=== PATIENT | female | born 1940 | race Two or more races ===

== ENCOUNTER 2019-08-01 05:55 | Day surgery (SDC) | payer OTHER ==
[~2019-08-01 05:55] MED LIST: ADVAIR HFA 230/12 GM IH; GLIPIZIDE XL10 MG PO; HUMULIN N100 UNIT/2; LATANOPROST 0.7.5 ML OP; SINGULAIR10 MG PO; ZESTORETIC 20-1 EAC1 PO; ZOCOR20 MG PO; ZYRTEC10 M3 PO
[2019-08-01] MEDS ORDERED: ULTRACET PO (12:07)
[2019-08-01] MEDS ORDERED: LEVAQUIN500 MG PO (12:08)
== END 2019-08-01 14:32 | disposition home or self-care (01) ==
LOC: CIR.AMB 05:55
DX: T85.193A Other mechanical complication of implanted electronic neurostimulator, generator, initial encounter (principal)
CPT/HCPCS: 64590; 64581; C1767; C1778

== ENCOUNTER 2024-08-15 05:06 | Day surgery (SDC) | payer OTHER ==
[~2024-08-15 05:06] MED LIST changes: +AMLODIPINE-BEN1 EAC4 PO; +ATORVASTATIN CA40 MG PO; +LANTUS SOL100 UNIT/1; +LEVAQUIN500 MG PO; +ULTRACET PO
[2024-08-15] MEDS ORDERED: CHLORHEXIDINE GLUCONATE 120 ML BOTTLE TOP ONE (07:17)
[2024-08-15] MEDS ORDERED: CIPROFLOXACIN IN 5 % DEXTROSE 400 MG/200 ML PIGGYBAG IV ONE (07:18)
[2024-08-15] MEDS ORDERED: LIDOCAINE HCL 1%/EPINEPHRINE 20ML VIAL IJ ONE (07:19)
[2024-08-15] MEDS ORDERED: LIDOCAINE HCL 1% 20 ML VIAL IJ ONE (07:25)
[2024-08-15] MEDS ORDERED: GENTAMICIN SULFATE 40 MG/ML VIAL ONE (07:25)
[2024-08-15] MEDS ORDERED: LEVOFLOXACIN250 MG PO (08:29)
== END 2024-08-15 09:25 | disposition home or self-care (01) ==
LOC: CIR.AMB 05:06
PROVIDERS: ATTEND Obstetrics & Gynecology Gynecology
DX: N32.81 Overactive bladder (principal); N39.41 Urge incontinence; T85.193A Other mechanical complication of implanted electronic neurostimulator, generator, initial encounter
CPT/HCPCS: 64590; 95972; C1767